=== PATIENT | male | born 1945 | race Two or more races ===

== ENCOUNTER 2021-03-11 07:22 | Outpatient (CLI) | payer OTHER | END 2021-03-11 07:31 | disposition home or self-care (01) | LOC: NUCLEAR 07:22 | PROVIDERS: ATTEND Internal Medicine Cardiovascular Disease | DX: I50.1 Left ventricular failure, unspecified (principal); I10 Essential (primary) hypertension; I25.10 Atherosclerotic heart disease of native coronary artery without angina pectoris | CPT/HCPCS: 78452; 93017; A9500; J0153 ==